=== PATIENT | female | born 1990 | race Two or more races ===

== ENCOUNTER 2017-09-28 04:11 | Emergency (ER) | payer BC ==
[~2017-09-28] VITALS: Ht 170.2 cm; Wt 65.8 kg
--- NOTE | 2017-09-28 04:22 | NUR ---
BIB SELF AA/OX4 COMPLAINING OF URQ ABDOMINAL PAIN X3 HOURS. 10/10 PAIN, NON RADIATING PAIN. DENIES CHEST PAIN. NO S/S OF SOB. ACTIVE BOWELS SOUNDS. NAUSEA PRESENT WITH NO VOMMITING. STABLE CONDITION. VSS. MD AT BEDSIDE FOR EVAL.
[2017-09-28] MEDS ORDERED: MORPHINE SULFATE INJ 2 MG/ML DISP.SYRIN IV ONE (04:30)
[2017-09-28] MEDS ORDERED: ONDANSETRON HCL/PF 4 MG/2 ML VIAL IVP ONE (04:30)
[2017-09-28] MEDS ORDERED: IV NS 0.9% 500 ML BAG IV ONE (04:30)
[2017-09-28] MEDS ORDERED: MORPHINE SULFATE INJ 4 MG/ML DISP.SYRIN ONE (04:43)
[2017-09-28] MEDS ORDERED: ONDANSETRON HCL/PF 4 MG/2 ML VIAL ONE (04:43)
[2017-09-28 04:54] LABS: BASOPHILS # (AUTO) 0.1 /CMM (0.0-0.2); BASOPHILS % (AUTO) 0.8 % (0.0-2.0); EOSINOPHILS % (AUTO) 0.7 % (0.0-6.0); HEMATOCRIT 37 % (33-45); HEMOGLOBIN 11.8 g/dL (11.5-14.8); LYMPHOCYTES # (AUTO) 1.6 /CMM (0.8-4.8); LYMPHOCYTES % (AUTO) 18.8 % (20.0-44.0); MEAN CORPUSCULAR HEMOGLOBIN 25 PG (26.0-33.0); MEAN CORPUSCULAR HGB CONC 32 g/dl (31.0-36.0); MEAN CORPUSCULAR VOLUME 77 fL (82-100); MONOCYTES # (AUTO) 0.2 /CMM (0.1-1.30); NEUTROPHILS # (AUTO) 6.5 /CMM (1.8-8.9); NEUTROPHILS % (AUTO) 76.7 % (43.0-81.0); PLATELET COUNT (AUTO) 264 /CMM (150-450); RDW COEFFICIENT OF VARIATION 15.9 (11.5-15.0); RED BLOOD CELL COUNT(AUTO) 4.82 MIL/uL (4.0-5.2); WHITE BLOOD COUNT (AUTO) 8.4 K/uL (4.3-11.0)
[2017-09-28 05:21] LABS: CALCIUM, SERUM 8.6 mg/dL (8.5-10.1); CREATININE 0.6 mg/dL (0.6-1.3); POTASSIUM 3.5 mmol/L (3.5-5.1)
[2017-09-28] MEDS ORDERED: LIDOCAINE VISCOUS 2% UD 15 ML UDC ONE (05:22)
[2017-09-28] MEDS ORDERED: MAG HYDROX/AL HYDROX/SIMETH 30 ML UDC ONE (05:22)
[2017-09-28 05:26] LABS: ALBUMIN 3.9 g/dL (3.4-5.0); BILIRUBIN,TOTAL 0.2 mg/dL (0.2-1.0); TOTAL PROTEIN, SERUM 7.8 g/dL (6.4-8.2)
--- NOTE | 2017-09-28 05:26 | NUR ---
ADMINISTERED MAALOX AND VISCOUS LIDOCAINE PER VERBAL ORDERS MD [place].
[2017-09-28] MEDS ORDERED: LIDOCAINE VISCOUS 2% UD 15 ML UDC MM ONE (06:00)
[2017-09-28] MEDS ORDERED: MAG HYDROX/AL HYDROX/SIMETH 30 ML UDC PO ONE (06:00)
--- NOTE | 2017-09-28 06:16 | NUR ---
Patient is resting comfortably in bed BOYRIEND AT BEDSIDE. Easily aroused. STABLE CONDITION. VSS. SAFETY MEASURES IN PLACE. CALL LIGHT WITHIN REACH.
[2017-09-28] MEDS ORDERED: HYDROMORPHONE INJ 2 MG/ML DISP.SYRIN ONE (06:58)
[2017-09-28] MEDS ORDERED: HYDROMORPHONE INJ 0.5 MG/0.5 ML SYRINGE IV ONE (07:00)
--- NOTE | 2017-09-28 07:08 | NUR ---
PT CONTINUES TO REST WELL. VSS. NAD. ADMINISTERED 0.5 DILAUDID ORDERED BY MD. SAFETY MEASURES IN PLACE. CALL LIGHT WITHIN REACH. FRIEND AT BEDSIDE.
--- NOTE | 2017-09-28 07:30 | NUR ---
PT ENDORSED TO ONCOMING AM SHIFT RN MAR. PT STABLE CONDITION. VSS. NAD.
[2017-09-28] MEDS ORDERED: PANTOPRAZOLE 40 MG VIAL IV ONE (08:00)
[2017-09-28] MEDS ORDERED: PANTOPRAZOLE 40 MG VIAL ONE (08:09)
[2017-09-28 09:08] VITALS: BP 127/82
--- NOTE | 2017-09-28 09:09 | NUR ---
Patient discharged to home in stable condition. Written and verbal after care instructions given. Patient verbalizes understanding of instruction.IV removed. Catheter intact and site benign. Pressure and 4x4 applied to site. No bleeding noted.
== END 2017-09-28 09:10 | disposition home or self-care (01) ==
LOC: ER 04:12
DX: R10.11 Right upper quadrant pain (principal); Z90.721 Acquired absence of ovaries, unilateral; Z86.69 Personal history of other diseases of the nervous system and sense organs
CPT/HCPCS: 36415; 76705-TC; 80048-TC; 80076-TC; 83690-TC; 85025-TC; A4606; C9113; J1170; J2270; J2405; J7040; Z7610